=== PATIENT | male | born 1960 | race Caucasian/White ===

== ENCOUNTER 2017-03-30 13:56 | Emergency (ER) | payer BC ==
--- NOTE | 2017-03-30 15:24 | ERNOTE ---
Date of Service: 03/30/17 Time Seen by Provider: 03/30/17 15:15 Stated Complaint: TIRED Source: patient Exam Limitations: no limitations Immunizations: IMMUNIZATION HX Immunizations Up to Date Yes History of Influenza Vaccine Yes Hx Pneumococcal Vaccination No Allergies/Adverse Reactions: Allergies No Known Allergies Allergy (Verified 03/30/17 14:14) FROM [employer] Home Medications: HOME MEDICATIONS Atorvastatin Calcium 80 mg PO HS 05/26/15 [Last Taken Unknown] Lisinopril [Zestril] 10 mg PO DAILY 10/22/15 [Last Taken Unknown] Aspirin 81 mg PO DAILY 03/30/17 [Last Taken Unknown] Insulin Pump Cartridge [Omnipod] 1 each SQ 03/30/17 [Last Taken Unknown] - History of Present Ilness Narrative: 56yo, M, presents to ER for c/o fatigue. He notes he was tx at this [facility] for URI symptoms. Initially tx with flonase and cetirizine, but later rx sent for Augmentin. He was scheduled to f/u internal medicine today, but overslept. He notes sinus congestion is improving with tx. He did have some dizziness 4 days ago and lost his balance, he also noted some mild dizziness yesterday with position change, but states dizziness symptoms resolved today. Denies any CP, LOC, syncope or palpitations. Modifying Factors - Improves: Reports: antibiotics - augmentin Modifying Factors - Worsens: Reports: activity Associated Symptoms: Reports: cough, shortness of breath - intermittent with activity, nasal congestion, dizziness, earache. Denies: chest pain/soreness, wheezing, lightheadedness, headache, fever/chills Prior Treatment: Reports: treated by physician - [facility] at [facility]- Donal Robb Review of Systems - Review of Systems Constitutional: Present: fatigue. Absent: fever, chills, weight loss ENT: Present: nose congestion. Absent: ear pain, ear discharge, sore throat Respiratory: Present: shortness of breath - with exertion at times, cough - productive. Absent: wheezing Cardiology: Absent: chest pain, palpitations, syncope, edema Gastrointestinal/Abdominal: Absent: nausea, vomiting Genitourinary: Absent: frequency, dysuria, hematuria Musculoskeletal: Absent: joint pain - no acute Skin: Absent: rash Neurological: Present: other - dizziness Endocrine: Absent: increased thirst, increased urine - Patient's Past Medical History Patient History - Medical: Diabetes Type 1 Patient History - Cardiac/Respiratory: No pertinent hx Patient History - Cancer: No Hx of Cancer Patient History - Surgical Procedures: Other Patient History - Other: None - Family History Mother Family History - Cardiac/Respiratory: Deep Vein Thrombosis, Pulmonary Embolism Father Family History - Medical: No pertinent hx Family History - Cardiac/Respiratory: No pertinent hx - Social History Living Situations: alone Abuse History: No History of abuse Psych History: No pertinent hx Have you smoked in the past 12 months: No Do you dip or chew tobacco: Yes Alcohol Use: heavy Drug Use: none - Immunizations Immunizations Up to Date: Yes Hx Pneumococcal Vaccination: No History of Influenza Vaccine: Yes Physical Exam - Physical Exam General Appearance: Present: wd/wn, alert, no apparent distress Ears, Nose, Throat: Present: pharyngeal erythema - moderate along with clear post nasal dc, other - mild nasal inflammation Respiratory: Present: no respiratory distress, normal breath sounds, no accessory muscle use. Absent: rales, rhonchi, wheezing Cardiovascular/Chest: Present: regular rate, rhythm, no murmur. Absent: other - no edema Gastrointestinal/Abdominal: Present: normal bowel sounds, nontender, nondistended, soft Neurological Exam: Present: alert, oriented, normal mood/affect, mapper II-XII nml as tested, other - decreased strength to RUE in comparison to LUE, but this is baseline per pt, neg pronator drift. Absent: facial droop Skin Exam: Present: normal color, warm/dry Lymphatic Exam: Present: no adenopathy - neck ED Progress - Date and Time Seen: Date and Time: 03/30/17 17:23 reviewed discharge and lab/xray results. He requests work note for tomorrow. - Results and Orders Patient's Lab Results:: I have reviewed the patient's lab results. - Vital Signs Patient's Vital Signs:: I have reviewed the patient's vital signs. Vital Signs: Vital Signs 03/30/17 03/30/17 14:11 15:01 Temperature 37.3 C Pulse Rate 89 86 Respiratory 14 14 Rate Blood Pressure 147/80 137/78 O2 Sat by Pulse 99 99 Oximetry - X-Ray X-Ray #1 X-Ray: chest Interpretation: Reviewed by me X-ray Comments: no acute cardiopulmonary process - Progress/Reassessment Chief Complaint: Upper Respiratory Symptoms Departure Clinical Impression: Sinusitis, Fatigue - Departure Disposition: Home self-care Condition: Good Instructions: Sinusitis, Adult, [id number] Additional Instructions: complete previously prescribed mediations as ordered May use Meclizine if needed for dizziness Schedule f/u with your primary care doctor Referrals: Emmett Godinez MD [Primary Care Provider] -
[2017-03-30 15:51] LABS: Hemoglobin 14.9 gm/dL (13.5-18.0); Mean Cell Volume 92.5 fl (78-100); Mean Corpuscular Hgb Conc 34.7 g/dl (32-36); Mean Platelet Volume 10.1 fl (6.0-9.5); Neutrophil % 66.5 % (42-75.0); Platelet Count 246 K/mm3 (150-450); Red Blood Count 4.65 M/mm3 (4.7-6.0); Red Cell Distribution Width 13.2 % (11.5-14.0); White Blood Count 6.1 K/mm3 (4.0-10.5)
[2017-03-30 15:56] LABS: Urine Bilirubin Negative (NEGATIVE); Urine Blood Negative /ul (NEGATIVE); Urine Ketone Negative (NEGATIVE); Urine Nitrite Negative (NEGATIVE); Urine Protein Negative (NEGATIVE); Urine Specific Gravity <=1.005 SP.GR. (1.005-1.030); Urine Urobilinogen Normal (NORMAL); Urine pH 5.5 pH (5.0-7.0)
[2017-03-30 16:11] LABS: Urine Appearance Clear; Urine Color Yellow
[2017-03-30 16:12] LABS: Urine Bacteria TRACE; Urine RBC None Seen /hpf (0-5); Urine WBC None Seen /hpf (0-5)
[2017-03-30 16:20] LABS: Albumin * 4.1 gm/dl (3.4-5.0); Anion Gap 14.6 mmol/L (6.8-13.8); BUN/Creatinine Ratio 7.2 (9.0-21.6); Bilirubin, Total 0.8 mg/dL (0.0-1.1); Ca. Corrected For Albumin 8.4 mg/dL (8.4-10.2); Calcium * 8.8 mg/dL (7.9-10.9); Carbon Dioxide 25.8 mmol/L (24-32.6); Potassium 4.4 mmol/L (3.4-4.6); TSH * 1.141 uIU/mL (0.358-3.74); Total Protein 7.2 gm/dL (6.2-8.2)
[2017-03-30 16:36] VITALS: BP 134/74
== END 2017-03-30 17:35 | disposition home or self-care (01) ==
LOC: ER 13:56
DX: J32.9 Chronic sinusitis, unspecified (principal); R53.83 Other fatigue; E10.9 Type 1 diabetes mellitus without complications

== ENCOUNTER 2017-09-15 14:44 | Observation (INO) | payer BC ==
[2017-09-15] MEDS ORDERED: ALBUTEROL SULFATE 2.5 MG/0.5 ML VIAL.NEB IH PRN (15:03)
[2017-09-15] MEDS ORDERED: LISINOPRIL 10 MG TABLET PO SCH ×2 (15:15→21:00)
[2017-09-15] MEDS ORDERED: NITROGLYCERIN 0.4 MG/TAB BTL SL PRN (15:17)
[2017-09-15] MEDS ORDERED: METOPROLOL TARTRATE 50 MG TABLET PO STA (15:38)
[2017-09-15 16:15] LABS: Chol/HDL Risk Ratio 1.1 mg/dL (3.3-5.0)
[2017-09-15] MEDS ORDERED: ATORVASTATIN CALCIUM 40 MG TABLET PO SCH (21:00)
--- NOTE | 2017-09-15 21:08 | PN ---
Progess Note - Interim Date: 09/15/17 Time: 20:41 Narrative: 09/15/17 20:41 Subjective Mr. Lima is a 57-yr-old WM pt of Dr. Fredy Urrutia with a PMH of: ARF, Carpal Tunnel Syndrome, DM Type 1, HTN & HLD. 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 He reports the pain was relieved by rest. It has continued since then with any form of exertional activity at work. He describes that the retrosternal pain feels like someone "pushing hard on his chest" and is accompanied by profound fatigue and dyspnea. At the ED this am , ERP recommended admission into the hospital for observation for R/I or R/O ACS /MO but pt declined despite education on risks and benefits. He was able to agree to follow-up with PCP today and arrangements were made for an afternoon appointment. He was seen and evaluated by Dr. Urrutia and I agree with his assessment and plan of admission into the hospital for a full cardiac work-up evaluation as he is a high risk for ACS/MO. He has history of tobacco use ( mainly chewing) since age 16. He denies ETOH abuse, but according to nursing, his sister reported that he has frequent alcohol use. Other CAD risk factor involve Mother with hx of BAEZA, Hx of HTN & Diabetes. Objective He is alert & oriented x 4 & appears tremulous and irritated. LS CTA. HR is regular& there is no reproduction on pain on chest wall palpation. Abdomen is soft and non-tender. Assessment/plan 1.) New-onset Exertional Angina- will monitor serial troponins and Repeat EKGs. He will be placed on telemetry to monitor for any life threatening arrythmias. He will have a cardiac stress test in am. 2.) Etoh abuse- he denied alcohol use, but per family member, he has alcohol dependence. Due to tremulousness, will check Urine drug screen and ETOH. labs involving cbc and bmp were unremarkable. 3.) Stable chronic conditions: HTN- On Lisinopril HLD- Continue Aspirin DM 1- On insulin pump
[2017-09-15 21:16] LABS: Cocaine Ur Negative (NEGATIVE); Urine Barbiturate Negative (NEGATIVE); Urine Benzodiazepines Negative (NEGATIVE); Urine Opiates Negative (NEGATIVE); Urine PCP Negative (NEGATIVE); Urine THC Negative (NEGATIVE)
[2017-09-15 21:47] LABS: Troponin I Less than 0.017 ng/ml (0.00-0.10)
[2017-09-16] MEDS ORDERED: Regadenoson 0.08 MG/ML SYRG IV ONE (08:00)
[2017-09-16] MEDS ORDERED: Regadenoson 0.1 MG UNIT IV ONE (08:00)
[2017-09-16] MEDS ORDERED: ASPIRIN 81 MG TAB.CHEW PO SCH (09:00)
[2017-09-16 10:29] VITALS: BP 100/50
--- NOTE | 2017-09-16 10:57 | DS ---
(1) Atypical chest pain Problem: Acute (2) Diabetes 1.5, managed as type 1 Diagnosis(s): he was admitted because of chest pain on any exertion ekg and troponin were all normal. he underwent pharmacological nuclear stress test and it was reported as normal. no further chest pain so he will be discharge Problem: Acute Procedures Performed: none Discharge Location: Home Disposition: Home self-care Condition: Good Discharge Activity: Activity as tolerated Discharge Diet: Consistent carbs Referrals: Fredy Urrutia MD [Primary Care Provider] - Complete Home Medications List: Complete Home Medication List: Atorvastatin Calcium 80 mg PO HS 05/26/15 Lisinopril [Zestril] 10 mg PO HS 10/22/15 Aspirin 81 mg PO DAILY 03/30/17 Insulin Pump Cartridge [Omnipod] 1 each SQ DAILY 03/30/17 Albuterol Sulfate [Proair Hfa] 2 puff IH Q4H PRN #1 inhaler 09/15/17 Azithromycin [Zithromax] 500 mg PO NOW #6 tab 09/15/17
== END 2017-09-16 11:35 | disposition home or self-care (01) ==
LOC: MS 14:44
PROVIDERS: ADMIT Internal Medicine; ATTEND Internal Medicine
DX: R07.89 Other chest pain (principal); I10 Essential (primary) hypertension; E10.9 Type 1 diabetes mellitus without complications; E78.5 Hyperlipidemia, unspecified; F17.220 Nicotine dependence, chewing tobacco, uncomplicated; R06.00 Dyspnea, unspecified
CPT/HCPCS: 36415; 78452; 80061; 80307; 84484; 93005; 93017; A9502; G0378; G0379; G0481; J2785